=== PATIENT | female | born 1935 | race Caucasian/White ===

== ENCOUNTER 2018-01-30 06:14 | Inpatient (IN) | payer OTHER, BC ==
[2018-01-30] MEDS ORDERED: NS 1,000 ML IV ONE ×3 (06:42→10:27)
--- NOTE | 2018-01-30 06:51 | CPEKG ---
Heart Rate: 138 RR Interval: 435 P-R Interval: 148 QRSD Interval: 84 QT Interval: 356 QTC Interval: 540 P Jones: 92 QRS Jones: 228 T Wave Jones: -52 EKG Severity - ABNORMAL ECG - EKG Impression: consider atrial flutter EKG Impression: SINUS TACHYCARDIA EKG Impression: NONSPECIFIC T ABNORMALITIES, INFERIOR LEADS Electronically Signed By: Kenzie Warren 30-Jan-2018 14:06:21
[2018-01-30 06:55] LABS: PLATELET COUNT 363 10^3/uL (150-400)
--- NOTE | 2018-01-30 07:03 | EDPHY ---
HPI/HX/ROS/PE/MDM Narrative: CHIEF COMPLAINT: Diarrhea HISTORY OF PRESENT ILLNESS: The patient is a 83 y/o female with lung cancer and Parkinson's disease complaining of diarrhea for several days. She had her weekly chemotherapy treatment this week and had an episode of diarrhea and took some Imodium after the treatment, which is normal. However, she continued to have diarrhea and on Thursday the frequency of the diarrhea increased. Yesterday, she had lab work preformed at the advice of Dr. Armando, her oncologist, at [facility]. Last night she continued to drink a small amount of fluid and had another Imodium as the diarrhea continued. For the past 3 hours she has had an episode of diarrhea every hour. Her daughters did notice a small amount of bright red blood on the toilet paper recently. She has also had several small episodes of vomiting. She is currently feeling exhausted but is not in any pain or discomfort. She was last seen at [facility] on 01/21/18 and had normal sinus rhythm at this time. Denies history of stents or CABG. No fever, loss of consciousness, chills, chest pain, shortness of breath, palpitations, urinary complaints, headache, lightheadedness. REVIEW OF SYSTEMS: Aside from elements discussed in the HPI, a comprehensive 10-point review of systems was reviewed and is negative. PAST MEDICAL HISTORY: Lung cancer, Parkinson's Disease, A-fib, breast cancer, ostopenia, anemia SOCIAL HISTORY: Daughters at bedside, living with daughters in [place], originally from [place] VITAL SIGNS: BP: 112/55, HR: 134 GENERAL: Pale, frail, resting comfortably in no respiratory distress. HEENT: Atraumatic. Eyes: No icterus, no injection. Mouth: dry mucous membranes. No erythema or lesions. Neck: supple with no adenopathy. LUNGS: Clear to auscultation bilaterally, no wheezes, rhonchi or rales. CARDIAC: Tachycardic, no rubs, murmurs or gallops. ABDOMEN: Soft, nontender, nondistended, bowel sounds normal. BACK: No CVA tenderness. EXTREMITIES: No trauma. No edema. Range of motion is normal throughout. NEURO: Alert and oriented, grossly nonfocal. SKIN: Warm and dry, no rash. PSYCHIATRIC: Normal mentation, no agitation. Portions of this note were transcribed by a medical referral coordinator. I personally performed a history, physical exam, medical decision making, and confirmed accuracy of information the transcribed note. ED Course: The patient is a 83 y/o female with lung cancer and Parkinson's disease presenting with worsening diarrhea for several days. On exam she is pale, frail , tachycardic and has dry mucous. She does have a benign belly and clear lungs. Labs, EKG, chest x-ray ordered. 1L IV NS administered. 0641: 12-LEAD EKG: Please see the full report in [facility]. My interpretation: Sinus tachycardia with a rate of 138, questionable aflutter 0722: Additional 1L IV NS given. 0750: BP is 94/69 and her heart rate is now 129. She does have an elevated troponin of 0.062. 0803: Consulted with hospitalist service, Dr. Owusu accepts this patient to the PCU for diarrhea, elevated troponin, and atrial flutter. 0815: Reassessed patient and discussed imaging and laboratory findings. I have also discussed plan for admission, patient and her daughters are comfortable with this plan. Blood pressure a bit soft, suspect it could improve with rate control. Diltiazem drip started. MDM: Diff dx considered included diarrhea, dehydration, demand ischemia, aflutter, afib, anemia, electrolyte abnormalities, renal insufficiency. - Data Points Imaging Results: Imaging Impressions Chest X-Ray 01/30/18 07:08 Impression: Masslike density in the right upper lobe, compatible with the patient's history of lung carcinoma, with some opacification in the right upper lobe, which could be compressive atelectasis or postobstructive pneumonia or tumor involvement, as well as the right apical pleural thickening. Comparison to old films would be helpful. No other findings for acute cardiopulmonary abnormality. Imaging: I viewed and interpreted images myself Laboratory Results: Laboratory Results 01/30/18 06:45 01/30/18 06:45 01/30/18 01/30/18 06:45 06:45 WBC 2.19 10^3/uL L 10^3/uL (3.80-9.50) RBC 4.08 10^6/uL L 10^6/uL (4.18-5.33) Hgb 8.9 g/dL L g/dL (12.6-16.3) Hct 30.7 % L % (38.0-47.0) MCV 75.2 fL L fL (81.5-99.8) MCH 21.8 pg L pg (27.9-34.1) MCHC 29.0 g/dL L g/dL (32.4-36.7) RDW 22.6 % H % (11.5-15.2) Plt Count 363 10^3/uL 10^3/uL (150-400) MPV 9.9 fL fL (8.7-11.7) Neut % (Auto) Not Reported Lymph % (Auto) Not Reported [place] % (Auto) Not Reported Eos % (Auto) Not Reported Baso % (Auto) Not Reported Nucleat RBC Rel Count 0.9 % H % (0.0-0.2) Absolute Neuts (auto) Not Reported Absolute Lymphs (auto) Not Reported Absolute Monos (auto) Not Reported Absolute Eos (auto) Not Reported Absolute Basos (auto) Not Reported Absolute Nucleated RBC 0.02 10^3/uL H 10^3/uL (0-0.01) Immature Gran % Not Reported Seg Neutrophils % 70 % % Band Neutrophils % 9 % % Lymphocytes % 16 % % Monocytes % 1 % % Metamyelocytes % 3 % % Myelocytes % 1 % % Immature Gran # Not Reported Absolute Seg Neuts 1.53 10^/uL L 10^/uL (1.70-6.50) Absolute Band Neuts 0.20 10^3/uL 10^3/uL (0.00-0.70) Absolute Lymphocytes 0.35 10^3/uL L 10^3/uL (1.00-3.00) Absolute Monocytes 0.02 10^3/uL L 10^3/uL (0.30-0.80) Absolute Metamyelocyte 0.07 10^3/mL H 10^3/mL (0.00-0.00) Absolute Myelocytes 0.02 10^3/mL H 10^3/mL (0.00-0.00) Platelet Estimate ADEQUATE (ADEQ) Hypochromasia 1+ H Basophilic Stippling 1+ H Elliptocytes 1+ H Smear Review By Pending Sodium 136 mEq/L mEq/L (135-145) Potassium 5.1 mEq/L mEq/L (3.5-5.2) Chloride 105 mEq/L mEq/L (97-110) Carbon Dioxide 25 mEq/l mEq/l (22-31) Anion Gap 6 mEq/L L mEq/L (8-16) BUN 28 mg/dL H mg/dL (7-23) Creatinine 0.6 mg/dL mg/dL (0.6-1.0) Estimated GFR > 60 Glucose 113 mg/dL H mg/dL (70-100) Calcium 7.6 mg/dL L mg/dL (8.5-10.4) Total Bilirubin 0.7 mg/dL mg/dL (0.1-1.4) AST 22 IU/L IU/L (14-46) ALT 28 IU/L IU/L (9-52) Alkaline Phosphatase 66 IU/L IU/L (38-126) Troponin I 0.062 ng/mL H ng/mL (0.000-0.034) Total Protein 4.6 g/dL L g/dL (6.3-8.2) Albumin 2.1 g/dL L g/dL (3.5-5.0) Medications Given: Discontinued Medications Sodium Chloride (Ns) 1,000 mls @ 0 mls/hr IV ONCE ONE PRN Reason: Wide Open Stop: 01/30/18 06:43 Last Admin: 01/30/18 06:43 Dose: 1,000 mls Sodium Chloride (Ns) 1,000 mls @ 0 mls/hr IV ONCE ONE PRN Reason: Wide Open Stop: 01/30/18 07:30 Last Admin: 01/30/18 07:31 Dose: 1,000 mls General Time Seen by Provider: 01/30/18 06:57 Initial Vital Signs: Initial Vital Signs Temperature (C) 36.6 C 01/30/18 06:16 Heart Rate 140 H 01/30/18 06:16 Respiratory Rate 18 01/30/18 06:16 Blood Pressure 93/48 L 01/30/18 06:16 O2 Sat (%) 95 01/30/18 06:16 O2 Delivery Mode Nasal Cannula O2 (L/minute) 2 Allergies/Adverse Reactions: codeine Allergy (Verified 01/30/18 06:19) Home Medications: Medication Instructions Recorded Alendronate Sodium [Fosamax 70 MG 70 mg PO SCHNEIDER@0700 01/30/18 (*)] Amiodarone HCl [Pacerone (*)] 200 mg PO DAILY 01/30/18 Calcium Carbonate [Tums 500MG (*)] 500 mg PO DAILY 01/30/18 Carbidopa/Levodopa 25/100Mg 1.5 tab PO TIDMEAL 01/30/18 [Sinemet 25/100 MG (*)] Cholecalciferol Vit D3 [Vitamin D3 2,000 units PO DAILY 01/30/18 2000 units tab (OTC)] Diltiazem HCl [Cardizem Cd] 120 mg PO BID 01/30/18 Folic Acid [Folic Acid 1 MG (*)] 1 mg PO DAILY 01/30/18 Loperamide HCl [Imodium 2 mg (*)] 2 mg PO PRN PRN MDD 16mg 01/30/18 Multivitamins [Multivitamin (*)] 1 each PO DAILY 01/30/18 Omeprazole 40 mg PO DAILY 01/30/18 Ondansetron Odt [Zofran Odt 4 mg 4 mg PO Q8 PRN 01/30/18 (*)] Polyethylene Glycol 3350 [Miralax 17 gm PO DAILY PRN 01/30/18 17 gm (*)] Rivaroxaban [Xarelto] 20 mg PO DAILY@18 01/30/18 Departure - Departure Disposition: [facility] Acute Clinical Impression: Elevated troponin Diarrhea Qualifiers: Diarrhea type: unspecified type Qualified Code(s): R19.7 - Diarrhea, unspecified Atrial flutter Qualifiers: Atrial flutter type: unspecified Qualified Code(s): I48.92 - Unspecified atrial flutter Condition: Fair Report Scribed for: Kenzie Warren Report Scribed by: Cheyenne Lacey Date of Report: 01/30/18 Time of Report: 06:58
[2018-01-30] MEDS ORDERED: DILTIAZEM 125 MG in D5W 125 ML IV ONE (08:23)
[2018-01-30] MEDS ORDERED: ONDANSETRON DISINTEGRATING 4 MG TAB PO PRN (10:27)
[2018-01-30] MEDS ORDERED: ONDANSETRON 4 MG/2 ML VIAL IVP PRN (10:28)
[2018-01-30] MEDS ORDERED: ACETAMINOPHEN 325 MG TAB PO PRN (10:28)
--- NOTE | 2018-01-30 11:08 | GHP ---
[f rep st] HISTORY AND PHYSICAL DATE OF ADMISSION: 01/30/2018 CHIEF COMPLAINT: Diarrhea. HISTORY OF PRESENT ILLNESS: This is an 83-year-old female with a history of atrial fibrillation and flutter as well as a relatively recent diagnosis of lung cancer on chemotherapy who presents with naomi rrhea. She had her last round of chemotherapy on 01/27. She started having diarrhea yesterday, went into [facility], received a liter of fluid and felt better. She then went home an d had significantly profuse diarrhea overnight. She had very poor p.o. intake although she is not vo miting. Her daughter is a nurse who works at [employer], she noted that there has been no blood i n her diarrhea, there have been small amounts of blood on her toilet paper. The patient feels very w eak. She has not had any fevers. She has no abdominal pain either. PAST MEDICAL/SURGICAL HISTORY: 1. Paroxysmal atrial fibrillation and flutter, diagnosed in 2013, on Xarelto, amiodarone and diltiaz em, last seen by Dr. Ray on 01/21, found to be in normal sinus rhythm. 2. 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 This is cycle 1, third round. 3. History of breast cancer. 4. History of Parkinson disease. 5. History of a GI bleed do to an AVM in her colon. 6. History of Arora's esophagus. 7. Chronic diastolic congestive heart failure. 8. Endometrial cancer. 9. Osteopenia. MEDICATIONS: Please see medication reconciliation. ALLERGIES: Codeine. SOCIAL HISTORY: She is accompanied by her daughter. She recently just moved here in December to be radha se to her daughters for chemotherapy. FAMILY HISTORY: Reviewed and noncontributory. REVIEW OF SYSTEMS: A 10-point review of systems is conducted and is negative except per HPI. PHYSICAL EXAM: VITAL SIGNS: Blood pressure is currently 83/44, heart rate 117, respiration rate 12, sating 94% on 2.5 L, temperature 36.8. GENERAL: The patient is a pleasant female, she is resting c omfortably. She is quite somnolent but easily awakes. HEENT: Shows her to have relatively dry mucous membranes. CARDIOVASCULAR: Shows her to be tachycardic, she is slightly irregular at this rate. I do not appreciate any murmurs, rubs, or gallops. PULMONARY: Shows her to be breathing comfortably. I auscultated her from the anterior and did not appreciate any adventitious sounds. ABDOMEN: Show s her to have normal to hyperactive bowel sounds. She is soft nontender, nondistended. There is no guarding or rebound. SKIN: Shows her to be mildly pale. : Shows no [place]. NEUROLOGIC: Shows her to be alert and oriented x3. She is moving all extremities. She has a nonfocal neurologic exam. PS YCHIATRIC: Shows her to have a slightly depressed affect. LABS: Her white count is 2.1, hemoglobin is 8.9, platelets are 363. Potassium is 5.1, creatinine 0. 6. Troponin 0.062. She had a C diff yesterday which was negative. DATA: 1. I personally viewed and interpreted her chest x-ray. This shows right upper lobe mass. I do not appreciate any pulmonary edema or pleural effusions. 2. I personally viewed and interpreted her EKG. This shows atrial flutter, rate 138. IMPRESSION AND PLAN: 1. Atrial fibrillation with rapid ventricular response: She has some associated hypotension. I hav e discussed with Dr. Sparks of Cardiology who will see her. She is currently anticoagulated on Xarelto . She is on a diltiazem drip. I think that this is mostly driven by hypovolemia, I will give her an additional liter of fluid and reassess. Will continue her amiodarone for now as well as diltiazem d rip though she may not tolerate this drip with her low blood pressures. If we have persistent proble ms with hypotension, would consider cardioversion. She has not missed any doses of Xarelto. 2. Lung cancer: Currently getting treatment, last chemotherapy was 3 days prior to presentation. S he is getting carboplatin and Taxol. I have notified Dr. Mccray. 3. Diarrhea: Clostridium difficile was negative yesterday. I suspect that this is probably chemothe rapy associated diarrhea. There is a complete gastrointestinal pathogen panel pending. I think it i s safe to give her Imodium as needed. 4. History of Parkinson disease: Will continue her Sinemet. 5. Chronic diastolic dysfunction: She is clinically dry now. Will watch this with fluid intake. 6. Anemia: She is close to her baseline. 7. Leukopenia: Due to chemotherapy. Recheck tomorrow. 8. Venous thromboembolism: Risk is low as she is on Xarelto. 9. Code status: She would like to be do not resuscitate. /[id number]/MODL
[2018-01-30] MEDS: AMIODARONE HCL 200 MG TAB PO SCH (12:34)
[2018-01-30] MEDS: CARBIDOPA/LEVODOPA 25 MG/100 MG TAB PO SCH ×2 (12:34→18:11)
--- NOTE | 2018-01-30 13:13 | GCON ---
[f rep st] CONSULTATION DATE OF CONSULTATION: 01/30/2018 ONCOLOGIST: Allie Armando MD. HARNESS PULLER: Andrés Ray MD. CHIEF COMPLAINT: Atrial flutter. HISTORY OF PRESENT ILLNESS: We are asked by Dr. Owusu to visit with this patient, an 83-year-old f emale with a fairly new diagnosis of atrial fibrillation at an outside hospital, lung cancer, Turner on disease, and history of breast cancer. She is now admitted through the ER with frequent diarrhea, weakness, and hypotension and found to be in atrial flutter with rapid ventricular response. In the ER, she was started on a low-dose diltiaze m drip but was mildly hypotensive. She has received aggressive fluid resuscitation, and her blood pr essure is improved to the low 100s. She recently converted spontaneously to normal sinus rhythm. Upon my evaluation, she reports feeling a little bit better with less lightheadedness. She has not h ad problems with chest pain or dyspnea. She denies lower extremity edema. She does have a history o f atrial fibrillation and was on amiodarone and oral diltiazem. Recently her diltiazem has been held and her amiodarone increased, as she was hypotensive at home. She is also on Xarelto. She saw Dr. Ray on January 21 and was in sinus rhythm at that time. REVIEW OF SYSTEMS: As per HPI. Also diarrhea. She has had small amounts of blood on the toilet pap er after wiping. She has lost a significant amount of weight related to her lung cancer. ALLERGIES: Codeine. CODE STATUS: DNR. PAST MEDICAL HISTORY: 1. Atrial fibrillation, and today atrial flutter. 2. Lung cancer. 3. Breast cancer. 4. Parkinson disease. 5. Anemia. 6. History of GI bleed and colonic AVMs. OUTPATIENT MEDICATIONS: Amiodarone 200 mg daily, Fosamax, calcium carbonate, Sinemet, vitamin D3, fo lic acid, Imodium, multivitamin, omeprazole, Zofran, Xarelto 20 mg daily, and MiraLAX. SOCIAL HISTORY: The patient lives with her daughter. She recently moved from [place]. FAMILY HISTORY: Not applicable to the current case. PHYSICAL EXAMINATION: VITAL SIGNS: Blood pressure 100/46, heart rate 83, oxygen saturation 98% on 2 L. She is afebrile. GENERAL: Ill-appearing, frail elderly female, tremulous. HEENT: Mucous memb ranes are dry. Normocephalic, atraumatic. Sclerae are clear and nonicteric. CARDIOVASCULAR: Regul ar rate and rhythm with a 2/6 holosystolic murmur at the apex. No S3 or S4. LUNGS: Bibasilar rales without wheezes or rhonchi. ABDOMEN: Soft and nontender, without obvious bruits, masses, or hepato splenomegaly. EXTREMITIES: Warm and well perfused without cyanosis, clubbing, or edema. NEURO: Al ert and oriented x3 without gross focal neurologic deficits. Appropriate mood and affect. LABORATORY DATA: White count is 2.2, hematocrit is 31, platelets are 363. Sodium 136, potassium 5.1 , chloride 105, bicarb 25, BUN 28, creatinine 0.6. Troponin 0.062 and 0.08. TSH normal. Albumin 2. 1. C diff was negative yesterday. EKG reviewed by me shows atrial flutter with rapid ventricular response and no ischemic changes. Chest x-ray reviewed by me: Right upper lobe mass. ASSESSMENT AND PLAN: 83-year-old female with past diagnosis of atrial fibrillation and now atrial fl utter. She is admitted with hypotension related to diarrhea. She has now converted to normal sinus rhythm. 1. Atrial arrhythmias: Currently in sinus. Agree with continued amiodarone. Ultimately would like her on a lower dose, but while she is acutely ill, will keep on a dose of 200 mg daily. Stop IV dil tiazem. Would not start oral beta blockers or oral diltiazem given her borderline blood pressure. C subhash Bear for CHADS2-VASc score of 2. It sounds like she does have a history of GI bleed, so venu alba will have to follow her hematocrit closely. Also, her daughters report some blood on the toilet pa per, but does not sound like she has had significant bleeding currently. 2. Lung cancer: Her outpatient oncologist is Dr. Armando. She is getting chemotherapy. 3. Anemia: Follow closely. 4. Murmur on exam: This sounds like mitral regurgitation. Will further evaluate with echocardiogra m. 5. Positive troponin: This is likely strain in the setting of hypotension and tachycardia. I would not pursue stress testing at this time. Thank for allowing us to participate in this patient's care. I will follow with you. /[id number]/MODL
--- NOTE | 2018-01-30 14:02 | GCON ---
[f rep st] CONSULTATION ONCOLOGY INITIAL VISIT DATE OF CONSULTATION: 01/30/2018 PRIMARY ONCOLOGIST: Allie Armando MD REASON FOR VISIT: Evaluation and management of [id number] lung cancer. HISTORY OF PRESENT ILLNESS: The patient is an 83-year-old woman who was diagnosed in November of s year with a poorly-differentiated [id number] lung cancer. It was a stage IIIA (T2, Bn2). EGFR , Alk, ROS 1, and BRAF are negative. It is PDL-1 positive at 25%. She also does have a small, stage I endometrial cancer that is ER positive. She was not felt to be a candidate for combined therapies , but she wanted a trial of chemotherapy, so Dr. Armando tried her on weekly carboplatin and paclitaxel. Had the 1st dose on January 13, and she had her 3rd dose (which was reduced due to low blood counts) on January 27. She was in the office yesterday with some loose stools. She was hydrated, and C dif f was checked and negative. Her ANC was about 800. Overnight, her daughter called me because she middleton d persistent diarrhea throughout the night, and her heart rate was going up. The patient did not wan t to go to the hospital. I agreed with the daughter that she probably should be evaluated, but we de cided to try to encourage fluids and get her diarrhea under control with Imodium at 2 tablets every 4 hours. However, this morning, she was continuing to have problems, so she agreed to go to the emerg ency room. While there, she was found to be in atrial fibrillation with a rapid ventricular response and hypotensive. She was admitted and hydrated and doing better. She is currently sleeping as she was up most of the night, but her daughter is with her and provides most of the history. PAST MEDICAL HISTORY: ALLERGIES: Codeine. HOME MEDICATIONS: Include alendronate, carbidopa/levodopa, ondansetron, loperamide, calcium carbonat e, amiodarone, MiraLAX, rivaroxaban, multivitamin, folic acid, diltiazem, cholecalciferol, and omepra zole. CHRONIC ILLNESSES: Include: 1. Lung cancer as per HPI. 2. Endometrial cancer as per HPI. 3. Parkinson's. 4. Atrial fibrillation. 5. Hypertension. 6. Osteopenia. 7. Long-standing anemia. 8. Remote history of breast cancer. SURGICAL HISTORY: Includes: 1. Lumpectomy. 2. Left humerus fracture requiring ORIF in 2014. 3. Cataract repair. 4. Tonsillectomy. SOCIAL HISTORY: Is a nonsmoker. She is . 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 Uses alcohol occasionally. She has local daughters for support. FAMILY HISTORY: Positive for lung cancer in a brother and colon cancer in another brother. REVIEW OF SYSTEMS: Difficult to obtain from the patient. She is asleep, but I was able to get from the daughter. No fever at home. A 10-point was performed. Pertinent positives as per HPI; otherwis e negative. PHYSICAL EXAMINATION: VITAL SIGNS: Temperature is 36.7. Pulse is now down to 83, it was 138. Bloo d pressure is up to 100/46. GENERAL: She is sleeping soundly, comfortable, in no distress. HEENT: Difficult to perform. LUNGS: Decreased breath sounds in the right upper lung. CARDIAC: Currently regular with a 2/6 systolic murmur. ABDOMEN: Soft. Bowel sounds are hyperactive. NEURO: Appeare d to be grossly intact. LABORATORY DATA: Today's white count is better at 2200. ANC is 1500, that is improved from yesterda y. Hemoglobin is 8.9, platelet count is 363. Chemistry: BUN and creatinine of 28 and 0.6. LFTs un remarkable. Troponin is up slightly. Chest x-ray shows the mass in the right upper lobe. IMPRESSION: 1. Locally advanced lung cancer, on chemotherapy. 2. Early stage endometrial cancer. 3. Atrial fibrillation with rapid ventricular response. 4. Diarrhea of unclear cause. I spoke with Dr. Owusu. She is undergoing supportive therapy, and she is doing much better. Not s ure of the cause of the diarrhea. Chemotherapy typically causes constipation, but some patients can have the opposite response. Also need to rule out potential infectious, and that process is pending. Her Clostridium difficile yesterday was negative. The rising white count and no significant tender ness on exam or pain, underlying enterocolitis seems less likely. We decided not to do any further s danica at this time, but to continue fluids, monitoring her, and reassess. /[id number]/MODL
--- NOTE | 2018-01-30 14:55 | ASMTCMCOM ---
CM Note CM Note Notes: Pt presented to the Emergency Department early this morning with diarrhea for past several days. Pt diagnosed with afib with RVR, diarrhea s/p chemotherapy last Thu. History includes breast and lung cancer, Parkinson's disease, osteopenia, and anemia. Pt recently moved to [place] from [place] (in December) to be closer to her daughters during chemo. Pt lives with her daughter, Nasrin here in [place]. Pt admitted for further evaluation and treatment. Discharge needs remain unclear. Pt has been very weak. No PT/OT orders at this time. CONSTANTIN signed. CM will continue to follow. Current Discharge Plan: To be determined Date Signed: 01/30/2018 02:54 PM Electronically Signed By:Madison Bedoya RN
[2018-01-30] MEDS ORDERED: RIVAROXABAN 20 MG TAB PO SCH (18:00)
[2018-01-30] MEDS: NS 1,000 ML IV SCH (21:40)
[2018-01-31 04:49] LABS: PLATELET COUNT 269 10^3/uL (150-400)
[2018-01-31] MEDS: CARBIDOPA/LEVODOPA 25 MG/100 MG TAB PO SCH ×3 (07:21→17:28)
[2018-01-31] MEDS: NS 1,000 ML IV SCH (07:22)
[2018-01-31] MEDS: AMIODARONE HCL 200 MG TAB PO SCH (07:22)
[2018-01-31] MEDS: PANTOPRAZOLE SODIUM 40 MG TAB PO SCH (07:22)
[2018-01-31] MEDS ORDERED: NON-FORMULARY NEW DRUG (Omeprazole [Omeprazole] 40 MG) PO SCH (09:00)
[2018-01-31] MEDS ORDERED: AMIODARONE HCL 200 MG TAB PO SCH (09:00)
--- NOTE | 2018-01-31 09:46 | HOSPPROG ---
Hospitalist Progress Note Assessment/Plan: # a-fib with RVR - back to sinus yesterday, a-fib again overnight - likely volume related - will follow after transfusion - cont amiojuan luisrelbritany (holding dilt given her low BPs) - likely the cause of indet trops # anemia - dropped yesterday, suspect mostly dilutional; small amounts of blood in stool per RN - transfuse 2U PRBC today # diarrhea - unclear cause; possibly d/t chemo - improving, treat symptomatically # leukopenia - d/t chemo # lung cancer - treatment (carboplatin/paclitaxel) by dr jim # endometrial cancer - early stage, plan to address after lung ca addressed # parkinson's - sinemet # DNR # dvt ppx - xarelto # debility - PT/OT Subjective: about 4 episodes of diarrhea in 24 hours; overall feels better Objective: Vital Signs Temp Pulse Resp BP Pulse Ox 36.6 C 124 H 14 106/60 93 01/31/18 07:28 01/31/18 07:28 01/31/18 07:28 01/31/18 07:28 01/31/18 07:28 Microbiology 01/30/18 12:30 Gastrointestinal Tract Panel (PCR) - Final Stool No Organism Detected Laboratory Results 01/31/18 03:40 01/31/18 03:40 01/30/18 01/31/18 02/01/18 05:59 05:59 05:59 Intake Total 1900 970 Output Total 1550 Balance 350 970 tele personally reviewed discussed with Dr Sparks - Physical Exam Constitutional: cachectic Cardiovascular: no murmur, rub, or gallop, irregularly irregular Respiratory: no respiratory distress, no rales or rhonchi, clear to auscultation Gastrointestinal: soft, non-tender abdomen, no palpable masses, No guarding, No rebound, No distension ICD10 Worksheet Patient Problems: Problems Problem Status Onset Diarrhea Acute Elevated troponin Acute Atrial flutter Acute
--- NOTE | 2018-01-31 10:06 | PDMN ---
Medical Necessity Medical necessity: C/M review: est. > 2 MN LOS for eval and TX of acute atrial fibrillation with rapid ventricular response, back to sinus rhythm 01/30/2018, atrial fibrillation again overnight - likely volume related, anemia, Hgb / Hct dropped - suspect mostly dilutional, diarrhea of unclear cause - possibly due to chemotherapy, improving, leukopenia due to chemotherapy, debility, requiring planned 2 units PRBCs, ongoing IV fluids, oral Amiodarone, cardiac monitoring, pulse oximetry, supplemental O2, acute inpt PT/OT, comorbid lung cancer treated with chemotherapy, early stage endometrial cancer - plan to address after lung cancer addressed, Parkinson's disease per 01/31/2018 Hospitalist progress note.
--- NOTE | 2018-01-31 11:53 | SOAPPROG ---
SOAP Progress Note Assessment/Plan: E&M for NSCLC * Stage IIIA NSCLC, PD-L1 25%: s/p cycle 1 of weekly carbo/taxol; not a candidate for xrt. Too early to determine efficacy. * Diarrhea: possibly due to chemo although unusual. Seems resolved. * Anemia: multifactorial due to underlying disease and recent chemotherapy. Agree with blood transfusion today * Leukopenia: due to chemo; mildly better today. No sign of infection * Afib with RVR: intermittent; managed by IMED. Subjective: Awake and alert. Diarrhea is "gone". Very fatigue. Objective: Vital Signs Temp Pulse Resp BP Pulse Ox 36.6 C 124 H 14 106/60 93 01/31/18 07:28 01/31/18 07:28 01/31/18 07:28 01/31/18 07:28 01/31/18 07:28 Microbiology 01/30/18 12:30 Gastrointestinal Tract Panel (PCR) - Final Stool No Organism Detected Laboratory Results 01/31/18 03:40 01/31/18 03:40 01/30/18 01/31/18 02/01/18 05:59 05:59 05:59 Intake Total 1900 970 Output Total 1550 Balance 350 970 Physical Exam - Physical Exam General Appearance: no apparent distress Respiratory: lungs clear Cardiac/Chest: tachycardia Abdomen: non-tender, soft ICD10 Worksheet Patient Problems: Problems Problem Status Onset Atrial flutter Acute Diarrhea Acute Elevated troponin Acute
--- NOTE | 2018-01-31 12:03 | PDCARPN ---
Cardiology Progress Note Assessment/Plan: Assessment/plan: 83-year-old female with a history of paroxysmal atrial fibrillation and paroxysmal atrial flutter. Recent diagnosis of lung cancer status post 1st round of chemotherapy. She is admitted with significant diarrhea associated with hypotension. In the ER she was in atrial flutter but then she spontaneously converted. However, she is now back in atrial flutter. 1. Atrial arrhythmias: Rapid ventricular response. She is on amiodarone 200 mg daily in the outpatient setting. We will continue this in add low-dose IV diltiazem. Careful attention to her blood pressure. She is already on Xarelto which will be continued with careful attention to her hematocrit. 2. Diarrhea: This is improving. She has received significant IV fluid resuscitation. Infectious workup in process. C diff is negative. Possibly related to chemotherapy. 3. Lung cancer: Per Dr. Mccray and Dr. Armando. 4. Anemia: No active bleeding. Hemoglobin is quite low so she will receive transfusion today. 5. Systolic murmur consistent with mitral regurgitation: Echocardiogram when she is in sinus rhythm. 01/31/18 11:55 Subjective: She reports feeling better today but still somewhat weak. She was able to eat breakfast. No chest pain or dyspnea. Reviewed/Discussed With: family, hospitalist Objective: Vital Signs (8 Hrs) Temp Pulse Resp BP Pulse Ox 01/31/18 07:28 36.6 C 124 H 14 106/60 93 01/31/18 04:11 36.7 C 88 16 121/88 H 95 Intake/Output (24 Hrs) 01/30/18 01/31/18 02/01/18 05:59 05:59 05:59 Intake Total 1900 970 Output Total 1550 Balance 350 970 Intake: Oral (ml) 100 IV Infused (ml) 1800 970 Ns 1,000 ml @ 100 mls/hr 800 970 IV CONT RADHA Rx#: [id number] Ns 1,000 ml @ 3000 mls/hr 1000 IV ONCE ONE Rx#: [id number] Output: Urine (ml) 1550 Bedside Commode 1550 Other: Weight 38.102 kg Number of Voids Bedside Commode 1 Number of Stools Bedside Commode 1 Frail and fatigue Regular tachycardic rhythm 2/6 holosystolic murmur at the apex. Lungs clear bilaterally wheeze rhonchi or rales No lower extremity edema Result Diagrams: 01/31/18 03:40 01/31/18 03:40 Cardiac Labs: Cardiac Lab Results (72 Hrs) 01/30/18 01/30/18 18:59 11:59 Troponin I 0.069 H 0.080 H Telemetry: Sinus rhythm until around 4:00 a.m. When she went back into atrial flutter with rapid ventricular response. ICD10 Worksheet Patient Problems: Problems Problem Status Onset Diarrhea Acute Elevated troponin Acute Atrial flutter Acute
[2018-01-31] MEDS: DILTIAZEM 125 MG in D5W 125 ML IV SCH ×2 (12:47→21:15)
[2018-01-31] MEDS: CALCIUM CARBONATE 500 MG CHEWABLE TAB PO SCH (17:28)
[2018-01-31] MEDS: CHOLECALCIFEROL VIT D3 2,000 UNITS TAB/CAP PO SCH (17:28)
[2018-01-31] MEDS: RIVAROXABAN 15 MG TAB PO SCH (17:28)
[2018-01-31] MEDS ORDERED: LOPERAMIDE HCL 2 MG CAP PO PRN (20:02)
[2018-01-31] MEDS: LOPERAMIDE HCL 2 MG CAP PO PRN (21:39)
[2018-02-01] MEDS: NS 1,000 ML IV SCH ×2 (00:47→11:52)
[2018-02-01] MEDS: PANTOPRAZOLE SODIUM 40 MG TAB PO SCH (08:22)
[2018-02-01] MEDS: CALCIUM CARBONATE 500 MG CHEWABLE TAB PO SCH (08:23)
[2018-02-01] MEDS: CARBIDOPA/LEVODOPA 25 MG/100 MG TAB PO SCH ×3 (08:23→17:07)
[2018-02-01] MEDS: CHOLECALCIFEROL VIT D3 2,000 UNITS TAB/CAP PO SCH (08:23)
[2018-02-01] MEDS: AMIODARONE HCL 200 MG TAB PO SCH (08:23)
--- NOTE | 2018-02-01 10:24 | ECHO ---
[email or web address] [address] [address] Main: [phone] Fax: Transthoracic Echocardiogram Name: LOLA VILLEGAS MR#: [id number] Study Date: 02/01/2018 Study Time: 07:47 AM Date of : 1935 Age: 83 year(s) Height: 157.5 cm (62 in.) Weight: 38.1 kg (84 lb.) BSA: 1.32 m2 Gender: Female Examination: Echo Indication: Atrial flutter/murmur/hx lung cancer Image Quality: Contrast: Requested by: Vonda Sparks BP: 119 mmHg/49 mmHg Heart Rate: Rhythm: Indication: Atrial flutter/murmur/hx lung cancer Procedure Staff Cook Syrup Maker: Citlalli Pizarro RDCS Reading Physician: Woody Hnasen MD Requesting Provider: Conclusions: The ejection fraction is estimated to be 70-75 %. Mild to moderate mitral regurgitation. Mild tricuspid regurgitation is present. The pulmonary artery pressure is normal. Left side pleural effusion. Measurements: Chambers Valvular Assessment AV/MV Valvular Assessment TV/PV Normal Normal Normal Name Value Range Name Value Range Name Value Range Ao Kathryn (2D): 2.7 cm (1.4 cm-2.6 AV meanP mmHg ( - ) TR Vmax: 2.84 mm/s ( - ) cm) ANIYA (VTI): 2.0 cm ( - ) TR PGmax: 32 mmHg ( - ) IVSd (2D): 0.7 cm (0.6 cm-1.1 MV E Vmax: 1.17 m/s ( - ) syst. PAP: 37 mmHg ( - ) cm) MV A Vmax: 0.92 m/s ( - ) LVDd (2D): 4.3 cm (3.9 cm-5.3 MV E/A: 1.27 ( - ) cm) MV meanP mmHg ( - ) LVDs (2D): 2.2 cm (2.1 cm-4 cm) MVA (Vmax): 0.6 m/s ( - ) LVPWd (2D): 0.8 cm ( - ) LVOTd 1.8 cm 1.8 cm mm LVEF (BP): 82 % (>=55 %) EF Range: 70-75 % Continued Measurements: Chambers Valvular Assessment AV/MV Valvular Assessment TV/PV Name Value Name Value Name Value LADs Lon.0 cm MV Annulus: 2.9 cm CVP (est.): 5 mmHg LA Area: 23.3 cm2 MV E' Septal: 0.09 m/s MV E/E' Septal: 12.60 Patient: LOLA VILLEGAS Study Date: 02/01/2018 Page 1 of 2 07:47 AM MV E/E' Lateral: 13.50 MV VTI: 141.00 cm MR Vena Contracta: 0.3 cm MR PISA radius: 6 mm Findings: Left Ventricle: Normal size left ventricle. No LV hypertrophy. Global hypercontractility of the left ventricle. The ejection fraction is estimated to be 70-75 %. No regional wall motion abnormality. Right Ventricle: Normal size right ventricle. Left Atrium: The left atrium is mildly to moderately dilated. Right Atrium: The right atrium is normal in size. Mitral Valve: The mitral valve is normal in appearance and function. Mild to moderate mitral regurgitation. Aortic Valve: The aortic valve is normal in appearance and function. The aortic valve is tri-leaflet. Tricuspid Valve: The tricuspid valve is normal in appearance and function. Mild tricuspid regurgitation is present. The pulmonary artery pressure is normal. Pulmonic Valve: Pulmonary valve not well visualized. Trivial pulmonic valve regurgitation. Aorta: The aorta is normal. Pericardium: No pericardial effusion. Left side pleural effusion. (No Signature Object) Patient: LOLA VILLEGAS Study Date: 02/01/2018 Page 2 of 2 07:47 AM [id number]
--- NOTE | 2018-02-01 11:12 | PDCARPN ---
Cardiology Progress Note Assessment/Plan: Assessment: 1. Afib with RVR. Currently in NSR at 77 bpm. On diltiazem gtt at 2.5 mg/hr. Oral amiodarone at 200 mg daily. CHADS VASC 2, remains on Xarleto 15 mg qhs. 2. Lung Ca: Recent dx of Non Small Cell Lung Ca (IIIa) and recently started chemotherapy. Followed by Dr. Armando and Dr. Mccray. 3. Mild to Moderate Mr: mild to moderate MR on echo yesterday. Normal LVEF 65-70 %. 4. Anemia: Hgb 6.1 and HCT 21.1 this morning. Transfused 2 units yesterday. No active bleeding source. No hx of melena, hematochezia or hematemesis. 5. Leukopenia: WBC 1.74, secondary to chemo. Plan: -Agree with transfusion of 2 units PrBC's -In the absence of clear bleeding source, will continue Xarelto in the setting of CHADS VASC of 2. Will closely follow. May consider transition to pradaxa. -Continue Diltiazem gtt at 2.5 mg/hr. Will monitor BP. If BP remains stable and she stays in NSR, will plan to stop diltiazem gtt after completion of transfusion -Continue Amiodarone 200 mg daily -Will follow 02/01/18 11:14 Subjective: Mrs. Jama is a pleasant 83 year old female admitted with diarrhea, dehydration and found to be in Atrial fibrillation with RVR in the setting of recent diagnosis of Non Small Cell Lung Ca (stage IIIa) and initiation of chemotherapy. Her medical course is complicated by marked anemia and leukopenia. She was transfused 2 units of PRBC's yesterday. Hgb dropped from 8.9 post transfusion to 6.1 this AM. No active bleeding source. Known hx of GI AVM. She remains on anticoagulation with CHADS VASC of 2. Currently she is in NSR at 77 bpm. BP is stable at 119/49. She complains of generalized fatigue. No complaints of sob, ulloa, chest pain or pressure. No pnd or orthopnea. No complaints of dizziness, lightheadedness or near syncope. Troponin is trending down from 0.080 to 0.069. Most likely secondary to demand ischemia in the setting of Afib with RVR and marked anemia. Echo yesterday with normal wall motion and LVEF 65-70%. Mild to moderate MR. No pericardial effusion. Reviewed/Discussed With: family, multidisciplinary team Objective: Vital Signs (8 Hrs) Temp Pulse Resp BP Pulse Ox 02/01/18 07:16 37.1 C 82 24 H 119/49 L 89 L 02/01/18 04:06 36.8 C 86 16 113/46 L 96 Intake/Output (24 Hrs) 01/31/18 02/01/18 02/02/18 05:59 05:59 05:59 Intake Total 1900 2075 Output Total 1550 650 Balance 350 1425 Intake: Oral (ml) 100 200 IV Infused (ml) 1800 1225 Diltiazem 125 mg In D5w 55 125 ml @ Per Protocol IV CONT RADHA Rx#:[id number] Ns 1,000 ml @ 100 mls/hr 800 1170 IV CONT RADHA Rx#: [id number] Ns 1,000 ml @ 3000 mls/hr 1000 IV ONCE ONE Rx#: [id number] Packed Red Blood Cells ( 650 ml) Output: Urine (ml) 1550 650 Bedside Commode 1550 650 Other: Weight 38.102 kg Number of Voids Bedside Commode 1 1 Number of Stools Bedside Commode 1 1 1 Result Diagrams: 01/31/18 03:40 01/31/18 03:40 Cardiac Labs: Cardiac Lab Results (72 Hrs) 01/30/18 01/30/18 18:59 11:59 Troponin I 0.069 H 0.080 H - Physical Exam Constitutional: cachectic Eyes: anicteric sclera Cardiovascular: regular rate and rhythm, systolic murmur, pulses symmetric bilat Peripheral Pulses: 2+: carotid (R), carotid (L) Respiratory: clear to auscultate bilat, no crackles, no wheezes Musculoskeletal: no muscular tenderness Neurologic: AAOx3, CN II-XII grossly intact Psychiatric: cooperative, interactive ICD10 Worksheet Patient Problems: Problems Problem Status Onset Atrial flutter Acute Diarrhea Acute Elevated troponin Acute
--- NOTE | 2018-02-01 12:17 | ASMTCMCOM ---
CM Note CM Note Notes: 02/01/2018 Case Management Note Discussed pt during rounds today. Met w/pt to discuss d/c needs. Pt in agreement that home care is necessary. Faxed referral to [facility], notified on phone, able to accept patient. Confirmed address, best phone number is [phone]. home health clinical supervisor is Dr. Dunn. Met w/daughter Angela later in the morning seperately. Pt lives with her daughter Angela. Angela is receptive to Palliative Care consult and requested that both herself and her sister be present with patient. Notified RN. Case Management d/c poc: home with [facility] RN PT with palliative consult. Case Management to follow. Date Signed: 02/01/2018 12:16 PM Electronically Signed By:Uma Wray RN
--- NOTE | 2018-02-01 14:29 | SOAPPROG ---
SOAP Progress Note Assessment/Plan: Assessment: E&M for NSCLC * Stage IIIA NSCLC, PD-L1 25%: s/p cycle 1, week 3, of weekly carbo/taxol; not a candidate for xrt. Too early to determine efficacy. * Diarrhea: possibly due to chemo although unusual. Seems resolved. * Anemia: multifactorial due to underlying disease and recent chemotherapy. Agree with blood transfusion today * Leukopenia: due to chemo; mildly better today. No sign of infection * Afib with RVR: intermittent;now in sinus rhythm Plan:Check cbc after txn, palliative care consult scheduled 02/01/18 14:26 Subjective: Is tired Objective: Vital Signs Temp Pulse Resp BP Pulse Ox 98.7 F 84 18 121/55 H 93 02/01/18 14:10 02/01/18 14:10 02/01/18 14:10 02/01/18 14:10 02/01/18 14:10 Laboratory Results 01/31/18 03:40 01/31/18 03:40 01/31/18 02/01/18 02/02/18 05:59 05:59 05:59 Intake Total 1900 2075 500 Output Total 1550 650 550 Balance 350 1425 -50 Physical Exam - Physical Exam General Appearance: alert, mild distress, cachetic Respiratory: normal breath sounds Cardiac/Chest: regular rate, rhythm Abdomen: normal bowel sounds, non-tender ICD10 Worksheet Patient Problems: Problems Problem Status Onset Atrial flutter Acute Diarrhea Acute Elevated troponin Acute
[2018-02-01] MEDS: LOPERAMIDE HCL 2 MG CAP PO PRN (16:20)
[2018-02-01] MEDS: RIVAROXABAN 15 MG TAB PO SCH (17:07)
[2018-02-01 19:13] LABS: PLATELET COUNT 274 10^3/uL (150-400)
--- NOTE | 2018-02-01 19:41 | HOSPPROG ---
Hospitalist Progress Note Assessment/Plan: # Severe anemia - pt s/p 2 unit PRBC transfusion overngiht - hgb 8-> 6 this am suspecting multifactorial secondary chemotherapy and chronic illness - transfuse 2 additional units today - check post transfusion hgb # a-fib with RVR - TELE (personally reviewed and interpreted) sinus rhythm this am rates in 's likely the cause of indet trops- oxygen saturations 91% on 3L - cont dilt gtt at low dose unitl after transfusion - cont amio, xarelto # diarrhea - unclear cause; possibly d/t chemo- nearly resolved - improving, treat symptomatically # leukopenia - d/t chemo # lung cancer - treatment (carboplatin/paclitaxel) by dr jim - only cycle 1 # endometrial cancer - early stage, plan to address after lung ca addressed # parkinson's - sinemet # DNR # dvt ppx - xarelto # debility - PT/OT I have discussed the case with RN - will re- transfuse today and check post transfusion hgb this afternoon Subjective: dizzy this am Objective: Vital Signs Temp Pulse Resp BP Pulse Ox 37.1 C 91 20 139/76 H 91 L 02/01/18 15:48 02/01/18 15:48 02/01/18 15:48 02/01/18 15:48 02/01/18 15:48 Laboratory Results 02/01/18 19:01 01/31/18 03:40 01/31/18 02/01/18 02/02/18 05:59 05:59 05:59 Intake Total 1900 2075 1691 Output Total 0424 977 2423 Balance 350 1425 376 - Physical Exam Constitutional: chronically ill appearing Eyes: anicteric sclera Ears, Nose, Mouth, Throat: moist mucous membranes Cardiovascular: regular rate and rhythym Respiratory: no respiratory distress Gastrointestinal: normoactive bowel sounds Genitourinary: no bladder fullness Skin: warm Musculoskeletal: No asymmetric calves Neurologic: AAOx3 Lymph, Heme, Immunologic: no cervical LAD ICD10 Worksheet Patient Problems: Problems Problem Status Onset Atrial flutter Acute Diarrhea Acute Elevated troponin Acute
[2018-02-02] MEDS: LOPERAMIDE HCL 2 MG CAP PO PRN ×2 (02:30→16:24)
[2018-02-02] MEDS: NS 1,000 ML IV SCH ×3 (02:43→22:40)
[2018-02-02 04:27] LABS: PLATELET COUNT 271 10^3/uL (150-400)
[2018-02-02] MEDS: PANTOPRAZOLE SODIUM 40 MG TAB PO SCH (08:15)
[2018-02-02] MEDS: CHOLECALCIFEROL VIT D3 2,000 UNITS TAB/CAP PO SCH (08:15)
[2018-02-02] MEDS: CALCIUM CARBONATE 500 MG CHEWABLE TAB PO SCH (08:15)
[2018-02-02] MEDS: CARBIDOPA/LEVODOPA 25 MG/100 MG TAB PO SCH ×3 (08:15→17:51)
[2018-02-02] MEDS: AMIODARONE HCL 200 MG TAB PO SCH ×2 (08:15→19:38)
--- NOTE | 2018-02-02 10:26 | PDCARPN ---
Cardiology Progress Note Assessment/Plan: Assessment: 1. Afib with RVR. Returned to Afib at approx 04:00 toay. Diltiazem gtt increased to 15mg/hr. Oral amiodarone at 200 mg daily. CHADS VASC 3, remains on Xarleto 15 mg qhs. 2. Lung Ca: Recent dx of Non Small Cell Lung Ca (IIIa) and recently started chemotherapy. Followed by Dr. Armando and Dr. Mccray. 3. Mild to Moderate Mr: mild to moderate MR on echo yesterday. Normal LVEF 65-70 %. 4. Anemia: Hgb markedly improved to approx 12. this morning. Transfused 2 units yesterday. No active bleeding source. No hx of melena, hematochezia or hematemesis. 5. Leukopenia: WBC 1.74, secondary to chemo. Plan: -Increase Amiodarone to 200 mg bid. (give an additional Amiodarone 200 mg now) -In the absence of clear bleeding source, will continue Xarelto in the setting of CHADS VASC of 2. Will closely follow. May consider transition to pradaxa. -Continue Diltiazem gtt at 15mg/hr. Will monitor BP. -Agree with Palliative care consult -Will follow 02/02/18 10:27 Subjective: Adriana Alexandra received 2 units of PRBC yesterday. Hgb has improved from approx 6 to 12. She continues to feel fatigued. She has returned to Afib with rates in the mid 90's to 120's. No associated sob, dizziness, lightheadedness, chest pain or near syncope. She continues to complain of fatigue, which remains unchanged and is certainly multifactorial. She remains anticoagulated with Xarelto. No bleeding source to date. Reviewed/Discussed With: multidisciplinary team Time Spent With Patient: 15 minutes Objective: Vital Signs (8 Hrs) Temp Pulse Resp BP Pulse Ox 02/02/18 09:53 118 H 109/51 L 92 02/02/18 08:32 36.9 C 125 H 18 120/51 L 90 L 02/02/18 03:29 37.2 C 90 12 120/51 L 90 L Intake/Output (24 Hrs) 02/01/18 02/02/18 02/03/18 05:59 05:59 05:59 Intake Total 2075 1691 Output Total 041 1765 Balance 1425 -74 Intake: Oral (ml) 200 735 IV Infused (ml) 1225 356 Diltiazem 125 mg In D5w 55 117 125 ml @ Per Protocol IV CONT RADHA Rx#:[id number] Ns 1,000 ml @ 100 mls/hr 1170 239 IV CONT RADHA Rx#: [id number] Packed Red Blood Cells ( 650 600 ml) Output: Urine (ml) 650 1215 Bedside Commode 650 Catheter 1215 Urine/Stool Mix (ml) 550 Bedside Commode 550 Other: Intake Quantity Yes Sufficient Output Comment Catheter straight cath Number of Voids Bedside Commode 1 Incontinence 1 1 Number of Stools Bedside Commode 1 1 Catheter 1 Incontinence 1 Result Diagrams: 02/02/18 03:20 01/31/18 03:40 Cardiac Labs: Cardiac Lab Results (72 Hrs) 01/30/18 01/30/18 18:59 11:59 Troponin I 0.069 H 0.080 H - Physical Exam Constitutional: cachectic Cardiovascular: systolic murmur, irregularly irregular, other (trace right ankle edema. ) Peripheral Pulses: 2+: carotid (R), carotid (L) Respiratory: clear to auscultate bilat Neurologic: AAOx3, CN II-XII grossly intact Psychiatric: cooperative, interactive, following commands ICD10 Worksheet Patient Problems: Problems Problem Status Onset Atrial flutter Acute Diarrhea Acute Elevated troponin Acute
[2018-02-02] MEDS: DILTIAZEM 125 MG in D5W 125 ML IV SCH ×2 (11:09→18:09)
--- NOTE | 2018-02-02 12:06 | SOAPPROG ---
SOAP Progress Note Assessment/Plan: Assessment: E&M for NSCLC * Stage IIIA NSCLC, PD-L1 25%: s/p cycle 1, week 3, of weekly carbo/taxol; not a candidate for xrt. Too early to determine efficacy. * Diarrhea: possibly due to chemo although unusual. Seems resolved. * Anemia: multifactorial due to underlying disease and recent chemotherapy. Hgb 12 post 4 units * Leukopenia: due to chemo; No sign of infection * Afib with RVR: intermittent;cards following Plan:palliative care consult scheduled, possibly home after a fib controlled, follow up Dr Armando to discuss issues re lung cancer/chemo 02/01/18 14:26 02/02/18 12:03 02/02/18 12:03 Subjective: Feels stronger but still weak Objective: Vital Signs Temp Pulse Resp BP Pulse Ox 98.5 F 125 H 118 H 109/51 L 92 02/02/18 08:32 02/02/18 08:32 02/02/18 09:53 02/02/18 09:53 02/02/18 09:53 Laboratory Results 02/02/18 03:20 01/31/18 03:40 02/01/18 02/02/18 02/03/18 05:59 05:59 05:59 Intake Total 0117 1691 Output Total 930 1765 Balance 1425 -74 Physical Exam - Physical Exam General Appearance: alert, cachetic Respiratory: decreased breath sounds Cardiac/Chest: irregularly irregular ICD10 Worksheet Patient Problems: Problems Problem Status Onset Atrial flutter Acute Diarrhea Acute Elevated troponin Acute
[2018-02-02] MEDS ORDERED: CARBIDOPA/LEVODOPA 25 MG/100 MG TAB PO ONE (12:15)
--- NOTE | 2018-02-02 16:22 | HOSPPROG ---
Hospitalist Progress Note Assessment/Plan: # Severe anemia - pt s/p 4 unit PRBC transfusions - hgb 6 -> 12 this am suspecting multifactorial secondary chemotherapy and chronic illness - no need for additional blood - follow CBC daily # a-fib with RVR - TELE (personally reviewed and interpreted) afib in 130's- pt back into afib early this am likely the cause of indet trops- oxygen saturations 92% on 3L - cont dilt gtt - cont xarelto - cardiology increasing amiodarone today # diarrhea - resolved # leukopenia - d/t chemo # lung cancer - treatment (carboplatin/paclitaxel) by dr jim - only cycle 1 # endometrial cancer - early stage, plan to address after lung ca addressed # parkinson's - sinemet # DNR # dvt ppx - xarelto # debility - PT/OT I have discussed the case with Cardiology - will increase amiodarone today and work to wean off dilt gtt Subjective: feels better today Objective: Vital Signs Temp Pulse Resp BP Pulse Ox 36.7 C 113 H 28 H 125/55 H 92 02/02/18 12:10 02/02/18 12:10 02/02/18 12:10 02/02/18 12:10 02/02/18 12:10 Laboratory Results 02/02/18 03:20 01/31/18 03:40 02/01/18 02/02/18 02/03/18 05:59 05:59 05:59 Intake Total 2075 1691 1000 Output Total 650 1765 500 Balance 1425 -74 500 - Physical Exam Constitutional: chronically ill appearing Eyes: anicteric sclera Ears, Nose, Mouth, Throat: moist mucous membranes Cardiovascular: irregularly irregular, tachycardia Respiratory: no respiratory distress Gastrointestinal: normoactive bowel sounds Genitourinary: no bladder fullness Skin: warm Musculoskeletal: No asymmetric calves Neurologic: AAOx3 Psychiatric: interacting appropriately Lymph, Heme, Immunologic: no cervical LAD ICD10 Worksheet Patient Problems: Problems Problem Status Onset Atrial flutter Acute Diarrhea Acute Elevated troponin Acute
[2018-02-02] MEDS: RIVAROXABAN 15 MG TAB PO SCH (17:50)
[2018-02-03] MEDS: DILTIAZEM 125 MG in D5W 125 ML IV SCH (03:53)
[2018-02-03] MEDS: PANTOPRAZOLE SODIUM 40 MG TAB PO SCH (08:00)
[2018-02-03] MEDS: AMIODARONE HCL 200 MG TAB PO SCH ×2 (08:00→19:22)
[2018-02-03] MEDS: CHOLECALCIFEROL VIT D3 2,000 UNITS TAB/CAP PO SCH (08:00)
[2018-02-03] MEDS: CALCIUM CARBONATE 500 MG CHEWABLE TAB PO SCH (08:00)
[2018-02-03] MEDS: CARBIDOPA/LEVODOPA 25 MG/100 MG TAB PO SCH ×3 (08:00→18:03)
[2018-02-03] MEDS: NS 1,000 ML IV SCH (08:04)
--- NOTE | 2018-02-03 08:48 | PDCARPN ---
Cardiology Progress Note Chief Complaint: Adriana Alexandra has no new complaints this AM. She converted to normal sinus rhythm this morning. Amiodarone was increased to 200 mg p.o. B.i.d. from 200 mg once daily yesterday. Diltiazem drip currently at 5 milligrams/hour. Blood pressure remains well controlled, without evidence of hypotension. No complaints of palpitations, dizziness, lightheadedness, near syncope or syncope. Hemoglobin remained stable. She remains on anticoagulation with Xarelto 15 mg daily. Assessment/Plan: Assessment: 1. Afib with RVR. Currently in normal sinus rhythm. Currently on amiodarone 200 mg p.o. B.i.d.. Diltiazem drip at 5 milligrams/hour. CHADS VASC 3, remains on Xarleto 15 mg qhs. 2. Lung Ca: Recent dx of Non Small Cell Lung Ca (IIIa) and recently started chemotherapy. Followed by Dr. Armando and Dr. Mccray. 3. Mild to Moderate Mr: mild to moderate MR on echo yesterday. Normal LVEF 65-70 %. 4. Anemia: Hgb remained stable at 12. Transfused 2 units on Thursday, and 2 U on Thursday. No active bleeding source. No hx of melena, hematochezia or hematemesis. 5. Leukopenia: WBC 1.74, secondary to chemo. Plan: -continue Amiodarone to 200 mg bid. -In the absence of clear bleeding source, will continue Xarelto in the setting of CHADS VASC of 3. Will closely follow. May consider transition to pradaxa. -discontinue diltiazem drip -start diltiazem CD 100 20 mg once daily. -Agree with Palliative care consult -Will follow 02/02/18 10:27 02/03/18 08:46 Reviewed/Discussed With: multidisciplinary team Objective: Vital Signs (8 Hrs) Temp Pulse Resp BP Pulse Ox 02/03/18 08:32 37.0 C 85 18 130/60 H 90 L 02/03/18 04:00 37.2 C 101 H 20 117/56 L 87 L Intake/Output (24 Hrs) 02/02/18 02/03/18 02/04/18 05:59 05:59 05:59 Intake Total 1691 3262 Output Total 1765 1010 Balance -74 2252 Intake: Oral (ml) 735 200 IV Infused (ml) 356 3062 Diltiazem 125 mg In D5w 117 290 125 ml @ Per Protocol IV CONT RADHA Rx#:[id number] Ns 1,000 ml @ 100 mls/hr 239 2772 IV CONT RADHA Rx#: [id number] Packed Red Blood Cells ( 600 ml) Output: Urine (ml) 1215 1010 Catheter 1215 1010 Incontinence 0 Urine/Stool Mix (ml) 550 Bedside Commode 550 Other: Intake Quantity Yes No Sufficient Output Comment Catheter straight cath Number of Voids Incontinence 1 1 Number of Stools Bedside Commode 1 Catheter 1 Incontinence 1 1 Bladder Scan Volume (ml) Catheter 525 Incontinence 543 Post Void Residual Scan Volume (ml) Catheter 45 Result Diagrams: 02/03/18 03:27 01/31/18 03:40 - Physical Exam Constitutional: WDWN, no apparent distress Neurologic: AAOx3 Psychiatric: cooperative, interactive ICD10 Worksheet Patient Problems: Problems Problem Status Onset Atrial flutter Acute Diarrhea Acute Elevated troponin Acute
[2018-02-03] MEDS: DILTIAZEM CD 120 MG CAP PO SCH (09:10)
--- NOTE | 2018-02-03 12:50 | SOAPPROG ---
SOAP Progress Note Assessment/Plan: Assessment: E&M for NSCLC * Stage IIIA NSCLC, PD-L1 25%: s/p cycle 1, week 3, of weekly carbo/taxol; not a candidate for xrt. Too early to determine efficacy. * Diarrhea: possibly due to chemo although unusual. Seems resolved. * Anemia: multifactorial due to underlying disease and recent chemotherapy. Hgb 12 post 4 units * Leukopenia: due to chemo; No sign of infection * Afib with RVR: now in sinus, amiodarone increased Plan:palliative care consult scheduled, possibly home after a fib controlled, follow up Dr Armando to discuss issues re lung cancer/chemo 02/01/18 14:26 02/02/18 12:03 02/02/18 12:03 02/03/18 12:49 Subjective: tired Objective: Vital Signs Temp Pulse Resp BP Pulse Ox 98.1 F 82 16 110/56 L 91 L 02/03/18 11:39 02/03/18 11:39 02/03/18 11:39 02/03/18 11:39 02/03/18 11:39 Laboratory Results 02/03/18 03:27 01/31/18 03:40 02/02/18 02/03/18 02/04/18 05:59 05:59 05:59 Intake Total 7228 3683 Output Total 1226 1010 Balance -74 7480 ICD10 Worksheet Patient Problems: Problems Problem Status Onset Atrial flutter Acute Diarrhea Acute Elevated troponin Acute
--- NOTE | 2018-02-03 14:36 | HOSPPROG ---
Hospitalist Progress Note Assessment/Plan: # Severe anemia - pt s/p 4 unit PRBC transfusions - hgb 6 -> 12.8 this am suspecting multifactorial secondary chemotherapy and chronic illness - no need for additional blood - follow CBC daily # a-fib with RVR - TELE (personally reviewed and interpreted) converted to sinus this am - sinus 90's likely the cause of indet trops- oxygen saturations 92% on 3L - start PO diltiazem - cont amiodarone PO - cont xarelto - cardiology following # severe protein calorie malnutrition - BMI 15 - working to take PO - cont nourishments # diarrhea - resolved # leukopenia - d/t chemo # lung cancer - treatment (carboplatin/paclitaxel) by dr jim - only cycle 1 # endometrial cancer - early stage, plan to address after lung ca addressed # parkinson's - sinemet # DNR # dvt ppx - xarelto # debility - PT/OT I have discussed the case with RN - if HR remain controlled overnight will plan for dc tomorrow with PO meds Subjective: tolerating PO Objective: Vital Signs Temp Pulse Resp BP Pulse Ox 36.7 C 82 16 110/56 L 91 L 02/03/18 11:39 02/03/18 11:39 02/03/18 11:39 02/03/18 11:39 02/03/18 11:39 Laboratory Results 02/03/18 03:27 01/31/18 03:40 02/02/18 02/03/18 02/04/18 05:59 05:59 05:59 Intake Total 1691 3262 Output Total 1765 1010 Balance -74 2252 - Physical Exam Constitutional: chronically ill appearing, cachectic Eyes: anicteric sclera Ears, Nose, Mouth, Throat: dry mucous membranes Cardiovascular: regular rate and rhythym, systolic murmur Respiratory: no respiratory distress Gastrointestinal: normoactive bowel sounds Genitourinary: no bladder fullness Skin: warm Musculoskeletal: No asymmetric calves Neurologic: AAOx3 Psychiatric: interacting appropriately Lymph, Heme, Immunologic: no cervical LAD ICD10 Worksheet Patient Problems: Problems Problem Status Onset Atrial flutter Acute Diarrhea Acute Elevated troponin Acute
[2018-02-03] MEDS: RIVAROXABAN 15 MG TAB PO SCH (18:03)
[2018-02-04] MEDS: CARBIDOPA/LEVODOPA 25 MG/100 MG TAB PO SCH ×2 (09:05→12:15)
[2018-02-04] MEDS: DILTIAZEM CD 120 MG CAP PO SCH (09:06)
[2018-02-04] MEDS: PANTOPRAZOLE SODIUM 40 MG TAB PO SCH (09:06)
[2018-02-04] MEDS: AMIODARONE HCL 200 MG TAB PO SCH (09:06)
[2018-02-04] MEDS: CHOLECALCIFEROL VIT D3 2,000 UNITS TAB/CAP PO SCH (09:06)
[2018-02-04] MEDS: CALCIUM CARBONATE 500 MG CHEWABLE TAB PO SCH (09:06)
[2018-02-04 09:14] VITALS: BP 126/55
--- NOTE | 2018-02-04 10:53 | PDIAF ---
- Diagnosis Diagnosis: Atrial Fibrillation and Lung CA Code Status: Do Not Resuscitate - Medication Management Discharge Medications: Medications to Continue on Transfer Alendronate Sodium [Fosamax 70 MG (*)] 70 mg PO SCHNEIDER@0700 01/30/18 [Last Taken Unknown] Calcium Carbonate [Tums 500MG (*)] 500 mg PO DAILY 01/30/18 [Last Taken Unknown] Carbidopa/Levodopa 25/100Mg [Sinemet 25/100 MG (*)] 1.5 tab PO TIDMEAL 01/30/18 [Last Taken Unknown] Cholecalciferol Vit D3 [Vitamin D3 2000 units tab (OTC)] 2,000 units PO DAILY [Last Taken 01/29/18] Folic Acid [Folic Acid 1 MG (*)] 1 mg PO DAILY 01/30/18 [Last Taken 01/29/18] Loperamide HCl [Imodium 2 mg (*)] 2 mg PO PRN PRN MDD 16mg 01/30/18 [Last Taken Unknown] Multivitamins [Multivitamin (*)] 1 each PO DAILY 01/30/18 [Last Taken Unknown] Omeprazole 40 mg PO DAILY 01/30/18 [Last Taken 01/29/18] Ondansetron Odt [Zofran Odt 4 mg (*)] 4 mg PO Q8 PRN 01/30/18 [Last Taken Unknown] Polyethylene Glycol 3350 [Miralax 17 gm (*)] 17 gm PO DAILY PRN 01/30/18 [Last Taken Unknown] Rivaroxaban [Xarelto] 20 mg PO DAILY@18 01/30/18 [Last Taken 01/29/18] Amiodarone HCl [Pacerone (*)] 200 mg PO BID #60 tab 02/04/18 [Last Taken Unknown ] Diltiazem HCl [Cardizem Cd] 120 mg PO DAILY #0 02/04/18 [Last Taken 01/29/18 20: 30] Discharge Medications: Refer to the Discharge Home Medication list for PRN reason. - Orders Services needed: Home Care, Registered Nurse Home Care Face to Face: I certify that this patient was under my care and that I had the required [id number] encounter meeting the encounter requirements on the discharge day. My findings support the fact that the patient is homebound as defined in Home Care Face to Face Continued: CMS Chapter 7 Medicare Benefits Manual 30.1.1 , The condition of the patient is such that there exists a normal inability to leave home and consequently, leaving home would require a considerable and taxing effort. Isolation Type: None Diet Texture: Regular Texture Diet, Thin Liquids, Meds Whole in Puree Additional Instructions: Daily Straight Catheterization Palliative care eval and treat - Follow Up Care Current Providers and Referrals: Allie Armanod MD [Primary Care Provider] - As per Instructions Oscar Hughes MD [Medical Doctor] -
--- NOTE | 2018-02-04 11:50 | PDCARPN ---
Cardiology Progress Note Assessment/Plan: Assessment: 1. Afib with RVR. Currently in normal sinus rhythm. Currently on amiodarone 200 mg p.o. B.i.d.. Diltiazem CD 120 mg daily. CHADS VASC 3, remains on Xarleto 15 mg qhs. 2. Lung Ca: Recent dx of Non Small Cell Lung Ca (IIIa) and recently started chemotherapy. Followed by Dr. Armando and Dr. Mccray. 3. Mild to Moderate Mr: mild to moderate MR on echo February 01, 2018. Normal LVEF 65-70%. 4. Anemia: Hgb remained stable at 12.8. Transfused 2 units on Thursday, and 2 U on Thursday. No active bleeding source. No hx of melena, hematochezia or hematemesis. 5. Leukopenia: WBC 1.74, secondary to chemo. Plan: -continue Amiodarone to 200 mg bid for one week, then decrease to 200 mg daily. -Continue Diltiazem CD 120 mg daily -In the absence of clear bleeding source, will continue Xarelto in the setting of CHADS VASC of 3. -OK to hold Xarelto starting this Wednesday, February 07, 2018 prior to port placement next week with Dr. Scott Armando. Restart Xarelto when bleeding risk is acceptable to Dr. Armando post port placement -No further preoperative cardiac evaluation prior to port placement -Follow up with Dr. Ray as an out patient in next 2-3 weeks 02/04/18 11:50 Subjective: Adriana remains in NSR. No new issues overnight. No events on telemetry. Remains on Amiodarone 200 mg bid and Diltiazem CD 120 mg once daily. She remains anticoagulated with Xareleto 15 mg daily. CHADS VASC 3. Plan for discharge home today. Adriana plans for port placement next week with Dr. Sergio Armando. Plan to hold xarelto this Thursday. Pt does not require further cardiac testing prior to port placement. Reviewed/Discussed With: family Objective: Vital Signs (8 Hrs) Temp Pulse Resp BP Pulse Ox 02/04/18 08:00 36.8 C 81 20 126/55 H 92 02/04/18 04:00 36.9 C 88 15 116/62 90 L Intake/Output (24 Hrs) 02/03/18 02/04/18 02/05/18 05:59 05:59 05:59 Intake Total 3262 400 Output Total 1010 450 Balance 2252 -50 Intake: Oral (ml) 200 400 IV Infused (ml) 3062 Diltiazem 125 mg In D5w 290 125 ml @ Per Protocol IV CONT RADHA Rx#:[id number] Ns 1,000 ml @ 100 mls/hr 2772 IV CONT RADHA Rx#: [id number] Output: Urine (ml) 1010 450 Catheter 1010 450 Incontinence 0 Other: Intake Quantity No No Sufficient Output Comment Toilet PT declined Cath at this time. No discomfort. Number of Voids Catheter 1 Incontinence 1 Number of Stools Incontinence 1 Toilet 1 Bladder Scan Volume (ml) Catheter 525 490 Incontinence 543 247 Toilet 370 Post Void Residual Scan Volume (ml) Catheter 45 Result Diagrams: 02/03/18 03:27 01/31/18 03:40 ICD10 Worksheet Patient Problems: Problems Problem Status Onset Atrial flutter Acute Diarrhea Acute Elevated troponin Acute
--- NOTE | 2018-02-04 12:00 | PDIAF ---
- Diagnosis Diagnosis: Atrial Fibrillation and Lung CA Code Status: Do Not Resuscitate - Medication Management Discharge Medications: Medications to Continue on Transfer Alendronate Sodium [Fosamax 70 MG (*)] 70 mg PO SCHNEIDER@0700 01/30/18 [Last Taken Unknown] Calcium Carbonate [Tums 500MG (*)] 500 mg PO DAILY 01/30/18 [Last Taken Unknown] Carbidopa/Levodopa 25/100Mg [Sinemet 25/100 MG (*)] 1.5 tab PO TIDMEAL 01/30/18 [Last Taken Unknown] Cholecalciferol Vit D3 [Vitamin D3 2000 units tab (OTC)] 2,000 units PO DAILY [Last Taken 01/29/18] Folic Acid [Folic Acid 1 MG (*)] 1 mg PO DAILY 01/30/18 [Last Taken 01/29/18] Loperamide HCl [Imodium 2 mg (*)] 2 mg PO PRN PRN MDD 16mg 01/30/18 [Last Taken Unknown] Multivitamins [Multivitamin (*)] 1 each PO DAILY 01/30/18 [Last Taken Unknown] Omeprazole 40 mg PO DAILY 01/30/18 [Last Taken 01/29/18] Ondansetron Odt [Zofran Odt 4 mg (*)] 4 mg PO Q8 PRN 01/30/18 [Last Taken Unknown] Polyethylene Glycol 3350 [Miralax 17 gm (*)] 17 gm PO DAILY PRN 01/30/18 [Last Taken Unknown] Rivaroxaban [Xarelto] 20 mg PO DAILY@18 01/30/18 [Last Taken 01/29/18] Amiodarone HCl [Pacerone (*)] 200 mg PO BID #60 tab 02/04/18 [Last Taken Unknown ] Diltiazem HCl [Cardizem Cd] 120 mg PO DAILY #0 02/04/18 [Last Taken 01/29/18 20: 30] Discharge Medications: Refer to the Discharge Home Medication list for PRN reason. - Orders Services needed: Home Care, Registered Nurse, Physical Therapy, Speech Language Pathologist Home Care Face to Face: I certify that this patient was under my care and that I had the required [id number]-ivht encounter meeting the encounter requirements on the discharge day. My findings support the fact that the patient is homebound as defined in Home Care Face to Face Continued: [facility] Chapter 7 Medicare Benefits Manual 30.1.1 , The condition of the patient is such that there exists a normal inability to leave home and consequently, leaving home would require a considerable and taxing effort. Isolation Type: None Diet Texture: Regular Texture Diet, Thin Liquids, Meds Whole in Puree Additional Instructions: Daily Straight Catheterization- Homecare will do Palliative care eval and treat [facility] Homecare - Follow Up Care Current Providers and Referrals: Allie Armando MD [Primary Care Provider] - As per Instructions Oscar Hughes MD [Medical Doctor] -
--- NOTE | 2018-02-04 12:20 | ASMTLACE ---
LACE Length of stay for Answers: 4-6 days current admission Acuity / Level of Answers: Yes Care: Did the patient have an inpatient admission? Comorbidities - select Answers: Any tumor (including all that apply lymphoma or leukemia) Other Notes: Parkinson's disease, osteopenia, an tamar a # of Emergency department Answers: 1-2 visits in the last 6 months Score: 11 Date Signed: 02/04/2018 12:19 PM Electronically Signed By:WILDER Peter
--- NOTE | 2018-02-04 12:42 | PDHOMEO2F ---
Home Oxygen Face to Face Home Orders: I certify that a physician or a nurse practitioner or physician's assistant principal has had a eueg-ip-lmbu encounter with this patient on the date of this order due to the diagnosis listed, which relates to the primary reason the patient requires home oxygen. Alternative treatments have been tried, or considered, and deemed ineffective. It is anticipated that supplemental oxygen will result in improvement with treatment. Home oxygen qualifying diagnosis: lung cancer SpO2 on room air (%): 80 Frequency of home oxygen needed: continuous Home oxygen liters per minute: 4 Home oxygen delivery device: nasal cannula Concentrator: Yes E-tanks for mobility and back up: Yes If ordering portable O2, is the patient mobile in the home?: Yes I certify that, based on these findings, the home oxygen is medically necessary for this patient for the following length of time. Length of time home oxygen needed: 99 years
--- NOTE | 2018-02-04 19:21 | GDS ---
[f rep st] DISCHARGE SUMMARY DISCHARGE DIAGNOSES: Include: 1. Atrial fibrillation with rapid ventricular response. 2. Severe anemia, status post 4 units of blood transfusion. 3. Severe protein-calorie malnutrition. 4. Lung cancer, status post her 1st cycle of carboplatin with Taxol. 5. Parkinson's. 6. Pancytopenia. HISTORY OF PRESENT ILLNESS: This is an 83-year-old female with a history of stage IIIA qzd-qskgo-mij l lung cancer, status post cycle 1 week 3 of carboplatin/paclitaxel, who presents with severe anemia and atrial fibrillation with rapid ventricular response. CONSULTATIVE SERVICES: Include: 1. Oncology. 2. Cardiology. HOSPITAL COURSE: By issue: 1. Atrial fibrillation with rapid ventricular response. Patient was placed on a diltiazem drip. Sh e did convert to sinus rhythm on several occasions, but ultimately required transition from the dilti azem drip to p.o. diltiazem and p.o. amiodarone. On the day of disposition, her heart rates are cont rolled and she is in sinus rhythm. She will be discharged with p.o. diltiazem 120 daily and amiodaro ne 200 twice a day. 2. Severe anemia, thought multifactorial, from chemotherapy, dilution, and chronic disease. Patient had jagjit of hemoglobin in the 6's, received a 4-unit blood transfusion, and her hemoglobin is in th e 12 on the day of disposition. She will continue to be followed in the outpatient setting by her on cology team. 3. Diarrhea, thought chemotherapy related. This did improve during her hospital stay without interv ention. DISP MEDICATIONS: Please reference med rec printed on 02/04/2018. FOLLOWUP APPOINTMENTS: Include: 1. Outpatient [facility] for ongoing management of her stage IIIA gaz-dicxa-htur l kirk cancer. 2. Palliative Care for ongoing care and symptom control in the outpatient setting. 3. Cardiology for long-term management of her atrial fibrillation. I spent greater than 30 minutes in the planning and coordination of this discharge. /[id number]/MODL
--- NOTE | 2018-02-05 09:27 | PDHOMEO2F ---
Home Oxygen Face to Face Home Orders: I certify that a physician or a nurse practitioner or physician's assistant corporate controller has had a imlq-fv-axlm encounter with this patient on the date of this order due to the diagnosis listed, which relates to the primary reason the patient requires home oxygen. Alternative treatments have been tried, or considered, and deemed ineffective. It is anticipated that supplemental oxygen will result in improvement with treatment. Home oxygen qualifying diagnosis: chronic hypoxic respiratory failure Home oxygen secondary diagnosis: progressive lung CA with chronic infiltrates SpO2 on room air (%): 80 Frequency of home oxygen needed: continuous Home oxygen liters per minute: 3 Home oxygen delivery device: nasal cannula Concentrator: Yes E-tanks for mobility and back up: Yes If ordering portable O2, is the patient mobile in the home?: Yes I certify that, based on these findings, the home oxygen is medically necessary for this patient for the following length of time. Length of time home oxygen needed: 99 years
--- NOTE | 2018-02-05 14:20 | ASDISCHSUM ---
Discharge Information Plan Status:Home with Home Health Medically Cleared to Leave:02/04/2018 Discharge Date:02/04/2018 03:30 PM CM D/C Disposition:Home Health Service ADT D/C Disposition:Home Health Service Projected Discharge Date:02/04/2018 11:00 AM Transportation at D/C: Discharge Delay Reason: Follow-Up Date:02/04/2018 11:00 AM Discharge Slot: Final Diagnosis:Afib w/ RVR, diarrhea sec to chemo, lung ca, breast ca, Parkinson's disease, osteope betsey, anemia Placement Information Referral Type:*Home Health Care Services Referral ID:[id number] Provider Name:[facility] Address 1[address] [facility] [address] Address 2: City:[place] Selection Factors: State:[place] Referral Type:Palliative Care Referral ID:[id number] Provider Name:[facility] [place] [facility] Address 1:[address] Address 2: City:[place] Selection Factors: State:[place] Patient Contact Information Contact Name:BISI Relationship:Daughter Address:[address] City:[facility] Phone: [facility]/Zip Code:[place] [address] Email: Financial Information Financial Class:Medicare Primary Plan Desc:MEDICARE INPATIENT Primary Plan Number:[id number] Secondary Plan Desc:[facility] MEDICARE SUPPLEMENT Secondary Plan Number:[id number] Assessment Information [facility] CM Progress Note CM Note CM Note Notes: Pt presented to the Emergency Department early this morning with diarrhea for past several days. Pt diagnosed with afib with RVR, diarrhea s/p chemotherapy last Thu. History includes breast and lung cancer, Parkinson's disease, osteopenia, and anemia. Pt recently moved to [place] from [place] (in December) to be closer to her daughters during chemo. Pt lives with her daughter, Nasrin esquivel in [place]. Pt admitted for further evaluation and treatment. Discharge needs remain unclear. Pt has been very weak. No PT/OT orders at this time. CONSTANTIN signed. CM will continue to follow. Current Discharge Plan: To be determined Date Signed: 01/30/2018 02:54 PM Electronically Signed By:Madison Bedoya RN LACE EVA Length of stay for Answers: 4-6 days current admission Acuity / Level of Answers: Yes Care: Did the patient have an inpatient admission? Comorbidities - select Answers: Any tumor (including all that apply lymphoma or leukemia) Other Notes: Parkinson's disease, osteopenia, an tamar a # of Emergency department Answers: 1-2 visits in the last 6 months Score: 11 Date Signed: 02/04/2018 12:19 PM Electronically Signed By:WILDER Peter [facility] CM Progress Note CM Note CM Note Notes: 02/01/2018 Case Management Note Discussed pt during rounds today. Met w/pt to discuss d/c needs. Pt in agreement that home care is necessary. Faxed referral to [facility], notified on phone, able to accept patient. Confirmed address, best phone number is [phone]. medical billing coder is Dr. Dunn. Met w/daughter Angela later in the morning seperately. Pt lives with her daughter Angela. Angela is receptive to Palliative Care consult and requested that both herself and her sister be present with patient. Notified RN. Case Management d/c poc: home with [facility] RN PT with palliative consult. Case Management to follow. Date Signed: 02/01/2018 12:16 PM Electronically Signed By:Uma Wray RN Case Management Discharge Plan Note Case Management Discharge Discharge Order Complete? Answers: Yes Patient to Obtain Answers: via Family Medications Transportation Arranged Answers: Family/Friends EMTALA Complete Answers: No Case Management Transport Answers: No Form Complete Faxed Final Orders Answers: Yes Agency/Facility Transfer Answers: Yes Report Printed & Faxed to Receiving Agency Family Notified Answers: Yes Discharge Comments Notes: GIACOMO spoke w/ Dr. Fulton regarding d/c POC. Pt is being discharged today. GIACOMO spoke w/ mak Angela regarding d/c planning. Pt will require daily straight cath for the time being. CM notified [facility] of the d/c. [facility] is unable to staff an RN for tomorrow. CM informed Angela this. Angela would like to go w/ [facility]. [facility] accept. [facility] provided Malik w/ Angela's phone number (P#: [phone]). DC orders sent to [facility]. [facility] will bring pt home. CM notified Nasir of pts discharge. CM available for changes. Plan[facility], daily RN for straight cath, PT and SPL with outpatient Nasir palliative Date Signed: 02/04/2018 12:16 PM Electronically Signed By:WILDER Peter [facility] Progress Note CM Note CM Note Notes: CM spoke w/ pts daughter and pt urinated today. Pt no longer needs a straight cath on a daily basis. Daughter would like to use [facility]. CM spoke w/ [facility] and they are able to accept. Daughter requested that CM fax new orders for home o2 to [facility]. Date Signed: 02/05/2018 02:19 PM Electronically Signed By:WILDER Peter Intervention Information Intervention Type:*KILLIAN-Signed Date of Service:01/30/2018 02:44 PM Patient Type:Observation Staff Member:RICH Bedoya Taylor Hours: Discipline: Severity: Comment: Intervention Type:*IM-Signed Date of Service:02/04/2018 12:18 PM Patient Type:Inpatient Staff Member:Nicole Orellana Hours: Discipline: Severity: Comment:
== END 2018-02-04 15:30 | disposition home health service (06) | DRG 308 ==
LOC: OBSVTOIN 08:03 → F2W 09:24
PROVIDERS: ADMIT Student in an Organized Health Care Education/Training Program; ATTEND Student in an Organized Health Care Education/Training Program
PROC: 30233N1 Transfusion of Nonautologous Red Blood Cells into Peripheral Vein, Percutaneous Approach (ICD-10-PCS; principal; 2018-01-31)
DX: I48.0 Paroxysmal atrial fibrillation (principal); E43 Unspecified severe protein-calorie malnutrition; C34.11 Malignant neoplasm of upper lobe, right bronchus or lung; D61.818 Other pancytopenia; K52.1 Toxic gastroenteritis and colitis; I50.32 Chronic diastolic (congestive) heart failure; Z68.1 Body mass index [BMI] 19.9 or less, adult; D63.8 Anemia in other chronic diseases classified elsewhere; C54.1 Malignant neoplasm of endometrium; G20 Parkinson's disease; D64.81 Anemia due to antineoplastic chemotherapy; T45.1X5A Adverse effect of antineoplastic and immunosuppressive drugs, initial encounter; Z85.3 Personal history of malignant neoplasm of breast; Z79.01 Long term (current) use of anticoagulants; Z66 Do not resuscitate
CPT/HCPCS: 92523-GN; 92526-GN; 92610-GN; 96365; 96366; 97162-GP; 97166-GO; 97530-GO; 97530-GP; 97535-GO; G0378; G8978-GP-CK; G8979-GP-CI; G8987-GO-CK; G8988-GO-CI; G8996-GN-CI; G8997-GN-CH; G9165-GN-CH; G9166-GN-CH; G9167-GN-CH; P9016; P9021